=== PATIENT | male | born 1980 | race Caucasian/White ===

== ENCOUNTER 2017-09-17 10:07 | Emergency (ER) | payer OTHER ==
--- NOTE | 2017-09-17 10:16 | EDPHY ---
H & P Time Seen by Provider: 09/17/17 10:10 HPI/ROS: CHIEF COMPLAINT: Hydrofluoric acid exposure HISTORY OF PRESENT ILLNESS: At work and changing a vent line when he noticed a fine spray on his left cheek. This was a container of hydrofluoric acid that he was cleaning. Patient thinks he got less than 1 mL and felt stinging feeling , applied calcium gluconate gel and washed in the decontamination water flow at work for 15 min. Arrives by EMS currently with no complaints. Specifically does not have dizziness or palpitations. REVIEW OF SYSTEMS: Eye: No visual symptoms ENT: No ear or throat symptoms Cardiac: No palpitations or syncope Pulmonary: Not short of breath Abdomen: No symptoms Musculoskeletal: No symptoms Skin: No burn noted Neuro: no headache Constitutional: no fever : No symptoms A comprehensive 10 point review of systems is otherwise negative aside from elements mentioned in the history of present illness. PAST MEDICAL HISTORY: Negative, only medication is testosterone Social history: This happened at work, at [employer] General Appearance: Alert and conversant, cooperative. Eyes: No scleral icterus. ENT, Mouth: No external evidence of facial burn. Respiratory: Normal respiratory effort, breath sounds equal, lungs are clear to auscultation. Cardiovascular: Regular rate and rhythm. Gastrointestinal: Abdomen is soft and non tender. Neurological: Alert, face symmetric, normal motor and sensory in extremities. Skin: Warm and dry, no rashes. Musculoskeletal: No peripheral edema. Psychiatric: Not agitated. Emergency Department course/MDM: EKG and calcium. Poison Control consulted at 1110am; recommends no need for observation, case # [id number]. Normal QT and calcium 8.8. Constitutional: Initial Vital Signs Temperature (C) 36.7 C 09/17/17 10:16 Heart Rate 79 09/17/17 10:16 Respiratory Rate 16 09/17/17 10:16 Blood Pressure 129/58 H 09/17/17 10:16 O2 Sat (%) 97 09/17/17 10:16 O2 Delivery Mode Room Air Allergies/Adverse Reactions: No Known Allergies Allergy (Unverified 09/17/17 10:18) Home Medications: Medication Instructions Recorded Testosterone IM 09/17/17 Medical Decision Making - Diagnostics EKG Interpretation: 12-lead EKG interpreted by me; official reading is in trace master. My interpretation is sinus rhythm rate 78 with QT 396. - Data Points Laboratory Results: Laboratory Results 09/17/17 10:19 09/17/17 09/17/17 10:31 10:19 POC Hgb 17.0 gm/dL gm/dL (13.7-17.5) POC Hct 50 % % (40-51) POC Sodium 142 mEq/L mEq/L (135-145) Sodium 143 mEq/L mEq/L (135-145) POC Potassium 3.8 mEq/L mEq/L (3.3-5.0) Potassium 4.2 mEq/L mEq/L (3.3-5.0) POC Chloride 102 mEq/L mEq/L (97-110) Chloride 103 mEq/L mEq/L (97-110) Carbon Dioxide 26 mEq/l mEq/l (22-31) Anion Gap 14 mEq/L mEq/L (8-16) POC BUN 19 mg/dL mg/dL (7-23) BUN 19 mg/dL mg/dL (7-23) Creatinine 1.1 mg/dL mg/dL (0.7-1.3) POC Creatinine 1.2 mg/dL mg/dL (0.7-1.3) Estimated GFR > 60 Glucose 89 mg/dL mg/dL (70-100) POC Glucose 93 mg/dL mg/dL (70-100) Calcium 8.8 mg/dL mg/dL (8.5-10.4) Point of Care Test Results: 09/17/17 10:31 POC Sodium 142 POC Potassium 3.8 POC Chloride 102 POC BUN 19 POC Creatinine 1.2 POC Glucose 93 Departure - Departure Disposition: Home, Routine, Self-Care Clinical Impression: Accidental exposure to hydrofluoric acid Condition: Good Instructions: Additional Information Referrals: Work Comp Ref/Restrictions [Outside] - As per Instructions (No work restrictions.)
--- NOTE | 2017-09-17 10:19 | CPEKG ---
Heart Rate: 78 RR Interval: 769 P-R Interval: 140 QRSD Interval: 86 QT Interval: 396 QTC Interval: 452 P Loco: 39 QRS Loco: 32 T Wave Loco: 3 EKG Severity - NORMAL ECG - EKG Impression: SINUS RHYTHM Electronically Signed By: Erick Guerrero 17-Sep-2017 10:31:22
[2017-09-17 11:24] VITALS: BP 124/75
== END 2017-09-17 11:24 | disposition home or self-care (01) ==
DX: Z77.098 Contact with and (suspected) exposure to other hazardous, chiefly nonmedicinal, chemicals (principal)
CPT/HCPCS: 82947-QW